=== PATIENT | female | born 1965 | race African-American/Black ===

== ENCOUNTER 2021-02-17 12:19 | Emergency (ER) | payer OTHER ==
[~2021-02-17] VITALS: Ht 165.1 cm; Wt 105.9 kg
[~2021-02-17 12:19] MED LIST: ATARAX25 MG PO; IBUPROFEN800 MG PO; MEDROL 4MG DOSEP4 MG PO; MOTRIN600 MG PO; PREDNISONE 20MG20 MG PO; ROBAXIN750 MG PO
[2021-02-17 12:50] LABS: BASOPHIL 0.5 % (0-2); EOSINOPHIL 0.6 % (0-5); HCT 43.1 % (37.0-47.0); HGB 13.3 g/dl (12.5-16.0); LYMPHOCYTE 18.4 % (15-48); MCH 22.3 pg (25.0-31.0); MCHC 30.9 g/dL (32.0-36.0); MCV 72.2 fL (78.0-100.0); MONOCYTE 6.3 % (0-12); MPV 10.7 fL (6.0-9.5); NEUTROPHIL 72.3 % (41-80); NRBC 0; PLT 245 K/uL (150-400); RBC 5.97 M/uL (4.20-5.40); RDW 17.3 % (11.5-14.0); WBC 11.4 K/uL (4.0-10.5)
[2021-02-17 13:13] LABS: INR 1.02 (0.9-1.2); PROTHROMBIN TIME 12.8 SECONDS (11.8-13.4); PTT 24.6 SECONDS (24.4-34.7)
[2021-02-17 13:29] LABS: ALBUMIN 3.9 g/dL (3.4-5.0); BILIRUBIN - TOTAL 0.8 mg/dL (0.2-1.0); BUN/CREAT RATIO (CALC) 16.9 RATIO; CREATININE 0.77 mg/dL (0.51-0.95); GLOBULIN (CALCULATION) 4.7 g/dL; POTASSIUM 3.4 mmol/L (3.5-5.1); TOTAL PROTEIN 8.6 g/dL (6.4-8.2)
[2021-02-17 15:38] LABS: BILIRUBIN NEGATIVE (NEGATIVE); BLOOD NEGATIVE Ery/uL (NEGATIVE); CLARITY CLEAR (CLEAR); COLOR YELLOW (YELLOW); GLUCOSE (U) 3+ mg/dL (NORMAL); LEUKOCYTES NEGATIVE Leu/uL (NEGATIVE); NITRITE NEGATIVE (NEGATIVE); PROTEIN NEGATIVE (NEGATIVE); SPECIFIC GRAVITY 1.015 (1.001-1.030); UROBILINOGEN 0.2 mg/dL (0.2-1.0)
[2021-02-17 21:35] LABS: BUN/CREAT RATIO (CALC) 16.7 RATIO; CREATININE 0.6 mg/dL (0.51-0.95); POTASSIUM 2.9 mmol/L (3.5-5.1)
== END 2021-02-17 23:15 | disposition home or self-care (01) ==
LOC: FER 12:19
PROVIDERS: Emergency Medicine Emergency Medical Services; Internal Medicine
DX: G93.41 Metabolic encephalopathy (principal); E11.00 Type 2 diabetes mellitus with hyperosmolarity without nonketotic hyperglycemic-hyperosmolar coma (NKHHC); E11.638 Type 2 diabetes mellitus with other oral complications; I10 Essential (primary) hypertension; Z83.3 Family history of diabetes mellitus; Z88.8 Allergy status to other drugs, medicaments and biological substances; Z88.9 Allergy status to unspecified drugs, medicaments and biological substances; Z91.018 Allergy to other foods; Z91.013 Allergy to seafood
CPT/HCPCS: 36415; 70450; 70551; 71045; 80048; 80053; 81003; 83880; 84484; 85025; 85610; 85730; 93005; J2997; J7030